=== PATIENT | female | born 1960 | race Caucasian/White ===

== ENCOUNTER 2017-05-25 18:53 | Emergency (ER) | payer SELFPAY ==
[~2017-05-25 18:53] MED LIST: FLUO20SO3 PO; KPHOSO PO; MAGN400 PO; MYCO500 PO; PROG1CAP PO; PROT40TA PO; SILV1CRE59 TOP; TAB-TAB PO; TRAZ50TA4 PO; TUMS500C PO
[2017-05-25 19:38] VITALS: BP 125/68; PULSE 76; RESP 20; TEMP 97.9; O2SAT 94
[2017-05-25] MEDS ORDERED: TRAZ50TA12 PO (19:55)
[2017-05-25] MEDS ORDERED: TACR1 PO (19:55)
[2017-05-25] MEDS ORDERED: AMLO10 PO (19:55)
[2017-05-25] MEDS ORDERED: CALC12502 PO (19:55)
[2017-05-25] MEDS ORDERED: PANT40TA3 PO (19:55)
[2017-05-25] MEDS ORDERED: MULTTAB67 PO (19:55)
[2017-05-25] MEDS ORDERED: MAGN400T2 PO (19:55)
[2017-05-25] MEDS ORDERED: PROZ20CA11 PO (19:55)
[2017-05-25] MEDS ORDERED: METO50TA PO (19:55)
[2017-05-25] MEDS ORDERED: MYCO250 PO (19:55)
--- NOTE | 2017-05-25 20:13 | PD ---
HPI Chief Complaint: Bite or Sting Time Seen by Provider: 19:59 Travel History International Travel<30 days: No Contact w/Intl Traveler<30days: No Traveled to known affect area: No History of Present Illness HPI 56yo F with PMH of kidney transplant on immunosuppressant presents to the ED for evaluation after her cat scratched her 2 hours ago. Said her cat attacked and scratch her bilateral arms. Does not think she was bit. Denies any fever, chest pain, sob, n/v, abdominal pain, focal weakness or numbness. Pt said she is up to date on vaccination and able to observe her cat for 10 days. It is an indoor cat. 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) Psychiatric: No Reproductive: No Respiratory: No Immunizations Current: Yes Radiation Therapy: No Renal Failure: Yes (END STAGE RENAL DISEASE - KIDNEY TRANSPLANT ) Sleep Apnea: No Thyroid Disease: No Tetanus Vaccination: < 5 Years Influenza Vaccination: Yes Menopausal: Yes : 2 Para: 2 Miscarriage: 0 : 0 Ovarian Cysts: Yes Tubal Ligation: Yes Past Surgical History Abdominal Surgery: Yes (choly, tubal ligation, c section) Section: Yes (1982) Cholecystectomy: Yes Gynecologic Surgery: Yes (c section, tubal ligation) Other Surgery: Yes (KIDNEY TRANSPLANT 2012) Social History Alcohol Use: Yes (daily) Tobacco Use: No Substance Use: No Allergies-Medications (Allergen,Severity, Reaction): Coded Allergies: No Known Allergies (Unverified Adverse Reaction, Unknown, 05/25/17) Reported Meds & Prescriptions Reported Meds & Active Scripts Active Tylenol (Acetaminophen) 325 Mg Tab 650 Mg PO Q6H PRN Augmentin (Amoxicillin-Clavulanate) 875-125 Mg Tab 1 Tab PO BID 10 Days Reported Norvasc (Amlodipine Besylate) 10 Mg Tab 50 Mg PO DAILY Multiple Vitamin 1 Tab 1 Tab PO DAILY Pantoprazole (Pantoprazole Sodium) 40 Mg Tab 40 Mg PO DAILY Prozac (Fluoxetine HCl) 20 Mg Cap 20 Mg PO DAILY Prograf (Tacrolimus) 1 Mg Cap 8 Mg PO DAILY Cellcept (Mycophenolate Mofetil) 250 Mg Cap 1,000 Mg PO DAILY Magnesium Oxide 400 Mg Tab 400 Mg PO DAILY Calcium Carbonate 500 Mg Calcium (1250 Mg) Tab 500 Mg PO DAILY 1,250 mg calcium carbonate (500 mg elemental calcium) Trazodone (Trazodone HCl) 50 Mg Tab 50 Mg PO HS Metoprolol Tartrate 50 Mg Tab 50 Mg PO DAILY Review of Systems Except as stated in HPI: all other systems reviewed are Neg Physical Exam Narrative GENERAL: 56yo F not in distress. SKIN: Focused skin assessment warm/dry. HEAD: Atraumatic. Normocephalic. EYES: Pupils equal and round. No scleral icterus. No injection or drainage. ENT: No nasal bleeding or discharge. Mucous membranes pink and moist. NECK: Trachea midline. No JVD. CARDIOVASCULAR: Regular rate and rhythm. No murmur appreciated. RESPIRATORY: No accessory muscle use. Clear to auscultation. Breath sounds equal bilaterally. GASTROINTESTINAL: Abdomen soft, non-tender, nondistended. MUSCULOSKELETAL: Bilateral upper extremities: Multiple scratch browning and superficial skin tears in bilateral upper extremity, mainly forearm. There is mid swelling of right and left forearm. +Ecchymoses. Sensation intact. FROM in shoulder, elbow and wrist. NEUROLOGICAL: Awake and alert. No obvious cranial nerve deficits. Motor grossly within normal limits. Normal speech. PSYCHIATRIC: Appropriate mood and affect; insight and judgment normal. Data Data Last Documented VS Vital Signs Date Time Temp Pulse Resp B/P (MAP) Pulse Ox O2 Delivery O2 Flow Rate FiO2 05/25/17 21:50 67 12 119/85 (96) 97 Room Air 05/25/17 19:38 97.9 Orders Orders Forearm (2vws) (05/25/17 ) Forearm (2vws) (05/25/17 ) Acetaminophen (Tylenol) (05/25/17 20:15) Amoxicil-Clavulanate (Augmentin) (05/25/17 20:15) Ed Discharge Order (05/25/17 22:10) MDM Medical Decision Making Medical Screen Exam Complete: Yes Emergency Medical Condition: Yes Differential Diagnosis Cat scratch vs. cat bite Narrative Course 56yo F with multiple cat scratches in bilateral upper extremities. Wounds were thorough cleansed and steri strip apply to approximate skin tears. First dose of augmentin given. Acetaminophen given for pain. Xray of bilateral forearm showed soft tissue swelling. No radiopaque foreign body, fracture or dislocation. This was pt's cat and she had observe the cat for 10 days so rabies not given. Tetanus up to date. Strict return precautions given. Diagnosis Primary Impression: Cat scratch Patient Instructions: General Instructions Departure Forms: Tests/Procedures Additional Instructions: Please return to the ED immediately if you have any signs of infection. Please follow up with your primary care physician in 3-7 days. Med/Other Pt SpecificInfo: Prescription(s) given Scripts Hydrocodone-Acetaminophen (Hydrocodone-Acetaminophen) 5-325 mg Tab 1 TAB PO Q6H Y for PAIN, #7 TAB 0 Refills Prov: Dolores Reyes DO 05/25/17 Amoxicillin-Clavulanate (Augmentin) 875-125 Mg Tab 1 TAB PO BID for Infection for 10 Days, #20 TAB 0 Refills Prov: Dolores Reyes DO 05/25/17 Disposition: 01 DISCHARGE HOME Condition: Stable Dolores Reyes DO May 25, 2017 20:13
[2017-05-25] MEDS ORDERED: ACETAMINOPHEN 325 MG TAB PO ONE (20:15)
[2017-05-25] MEDS ORDERED: AMOXICILLIN/CLAVULANATE K 875 MG TAB PO ONE (20:15)
--- NOTE | 2017-05-25 21:37 | RADRPT ---
EXAM DATE/TIME: 05/25/2017 20:51 [place] Corrected on: May 25, 2017; [facility] COMPARISON: No previous studies available for comparison. INDICATIONS : Right forearm pain after cat bite. MEDICAL HISTORY : None. SURGICAL HISTORY : None. ENCOUNTER: Initial ACUITY: 1 day PAIN SCORE: 6/10 LOCATION: Left forearm. FINDINGS: No acute fracture or dislocation is noted. Soft tissue swelling involving the right distal forearm is noted. No radiopaque foreign body. There is chondrocalcinosis in the region of the triangular fibroc artilage complex. CONCLUSION: 1. Soft tissue swelling involving the right distal forearm. 2. No radiopaque foreign body. 3. No fracture or dislocation. 4. 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 Roland Chavez MD on May 25, 2017 at 21:33 Board Certified Radiologist. This report was verified electronically. Roland Chavez MD on May 25, 2017 at 21:36 Board Certified Radiologist. This report was verified electronically.
--- NOTE | 2017-05-25 21:40 | RADRPT ---
EXAM DATE/TIME: 05/25/2017 20:51 [facility] COMPARISON: No previous studies available for comparison. INDICATIONS : Left forearm pain after cat bite. MEDICAL HISTORY : None. SURGICAL HISTORY : None. ENCOUNTER: Initial ACUITY: 1 day PAIN SCORE: 6/10 LOCATION: Left forearm. FINDINGS: There is no acute fracture or dislocation. No radiopaque foreign body is noted. Chondrocalcinosis is noted in the region of the triangular fibrocartilage complex CONCLUSION: 1. No acute fracture, dislocation or radiopaque foreign body. 2. 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 Roland Chavez MD on May 25, 2017 at 21:36 Board Certified Radiologist. This report was verified electronically.
[2017-05-25 21:50] VITALS: BP 119/85; PULSE 67; RESP 12; O2SAT 97
[2017-05-25] MEDS ORDERED: AUGM875T3 PO (22:10)
[2017-05-25] MEDS ORDERED: TYLE325T PO (22:10)
[2017-05-25] MEDS ORDERED: HYDR-3516 PO (22:18)
== END 2017-05-25 22:31 | disposition home or self-care (01) ==
LOC: PHEFT 18:53
DX: S40.811A Abrasion of right upper arm, initial encounter (principal); S40.812A Abrasion of left upper arm, initial encounter; W55.03XA Scratched by cat, initial encounter; Z94.0 Kidney transplant status
CPT/HCPCS: 73090; 99283